=== PATIENT | male | born 1955 | race Caucasian/White ===

== ENCOUNTER 2018-02-18 12:58 | Emergency (ER) | payer OTHER ==
[~2018-02-18] VITALS: Ht 162.6 cm; Wt 78.2 kg
[~2018-02-18 12:58] MED LIST: ASPIR 8181 MG PO; LOTENSIN10 MG PO; MOTRIN800 MG PO; OMEPRAZOLE DR20 M1 PO; SIMVASTATIN10 M1 PO
[2018-02-18 13:12] VITALS: Ht 162.6 cm; Wt 78.2 kg
[2018-02-18 14:06] VITALS: BP 139/87
== END 2018-02-18 14:06 | disposition home or self-care (01) ==
LOC: ED 12:58
DX: L20.9 Atopic dermatitis, unspecified (principal); L23.9 Allergic contact dermatitis, unspecified cause; Z88.0 Allergy status to penicillin

== ENCOUNTER 2018-02-28 01:07 | Emergency (ER) | payer OTHER ==
[2018-02-28 01:54] VITALS: BP 133/84
== END 2018-02-28 01:54 | disposition home or self-care (01) ==
LOC: ED 01:07
DX: L50.9 Urticaria, unspecified (principal); I10 Essential (primary) hypertension; E78.00 Pure hypercholesterolemia, unspecified